=== PATIENT | male | born 1955 | race Caucasian/White ===

== ENCOUNTER → 2025-05-09 | Outpatient (CLI) | payer MEDICARE, OTHER ==
[2025-05-15 09:43] LABS: HLA-B27 Negative (Negative)
== END ==
LOC: M RAD 14:26
PROVIDERS: ATTEND Physical Medicine & Rehabilitation
DX: M79.662 Pain in left lower leg (principal); M48.061 Spinal stenosis, lumbar region without neurogenic claudication; M47.896 Other spondylosis, lumbar region; M47.897 Other spondylosis, lumbosacral region; M47.894 Other spondylosis, thoracic region; M47.895 Other spondylosis, thoracolumbar region